=== PATIENT | female | born 1975 | race Hispanic/Latino ===

== ENCOUNTER 2016-12-16 14:29 | Emergency (ER) | payer OTHER ==
[~2016-12-16] VITALS: Ht 149.9 cm; Wt 61.8 kg
[~2016-12-16 14:29] MED LIST: ACET325T51 PO; ALBU18HF IN; ALBU8.5H4 INHALATION; CETI10CA PO; EPIN0.3P2 IJ; KEN1O TOP; OMEP20TA86 PO; ONDA4TAB12 PO; ONDA8TAB10 PO; OXYC1TAB24 PO; PHEN15CA67 PO
[2016-12-16 14:36] VITALS: BP 125/79; PULSE 63; RESP 16; O2SAT 100
--- NOTE | 2016-12-16 16:02 | ED.REPORT ---
HPI-Allergic Reaction Date of Service Dec 16, 2016 ED Provider: Ho Pearce MD Nursing Notes Stated Complaint: POSS ALLERGIC REACTION Chief Complaint: Allergic Reaction Allergies: Coded Allergies: TAPE (Verified Allergy, Severe, RASH, 05/15/16) azithromycin (Verified Allergy, Severe, HIVES, 05/15/16) codeine (Verified Allergy, Severe, UPSET STOMACH,RHINITIS,ANAPHYLAXIS, 05/15) peanut (Verified Allergy, Severe, stops breathing, 05/15/16) morphine (Verified Adverse Reaction, Severe, hallucinations, 05/15/16) Uncoded Allergies: SOAP (Allergy, Severe, RASH, 01/28/13) Scheduled Albuterol Sulfate (Ventolin HFA Inhaler) 200 Puff/18 Gm Inhaler 1 PUFF IN PRN Clindamycin (Clindamycin) 300 Mg Capsule 300 MG PO QID Epinephrine (Epipen 2-Juan Manuel) 0.3 Mg/0.3 Ml Auto.injct 0.3 MG IJ PRN Omeprazole (Omeprazole) 20 Mg Tablet.dr 20 MG PO BID Ondansetron ODT (Ondansetron ODT) 8 Mg Tab.rapdis 8 MG PO QID Phentermine (Phentermine) 15 Mg Capsule 15 MG PO DAILY Triamcinolone Acet (Triamcinolone Acetonide Ointment) 1 Applic/0.25 Gm Oint 60 APPLIC TOP BID 0.1% oxyCODONE-Acetaminophen 5-325 mg (oxyCODONE-Acetaminophen 5-325 mg) 1 Each Tablet 1 TABLET PO PRN Scheduled PRN Acetaminophen (Acetaminophen) 325 Mg Tablet 325 MG PO Q4H PRN PRN For Fever Albuterol HFA (Albuterol HFA) 8.5 Gm Hfa.aer.ad 1 PUFF INHALATION Q4H PRN PRN For Shortness of Breath Cetirizine HCl (Zyrtec) 10 Mg Capsule 10 MG PO HS PRN PRN ALLERGIES Ondansetron ODT (Ondansetron ODT) 4 Mg Tab.rapdis 4 MG PO Q4H PRN PRN For Nausea General Time Seen by MD: 15:41 Past Medical History Past Medical History Syphincter of oddi spasms Autoimmune disorder H/o anaphylaxis - carries EpiPen Frequent headaches Reports: Asthma, Diabetes mellitus Reports: Pancreatitis Past Surgical History Reports: Cholecystectomy Reports: Tubal ligation Smoking History Never Smoker Ambulatory Status Independent Physical Exam Initial Vital Signs Vital Signs (First) Date Time Temp Pulse Resp B/P Pulse Ox O2 Delivery O2 Flow Rate FiO2 12/16/16 14:36 36.6 63 16 125/79 100 12/16/16 17:25 Room Air Discharge & Departure Referrals: Gonzales Gongora MD (PCP) Ho Pearce MD Dec 16, 2016 16:02
--- NOTE | 2016-12-16 16:16 | ED.REPORT ---
HPI-General Illness Date of Service Dec 16, 2016 ED Provider: Ho Pearce MD The patient is a 41 year old female who presents to the emergency department concerned she may be having an allergic reaction. She was seen by her regular doctor 1 week ago for left-sided facial pressure and congestion. She was diagnosed with a sinus infection and sent home on amoxicillin. After her second dose last night she noticed a mild rash. Around 0300 this morning her noticed that the left side of her face was swollen and red. She denies shortness of breath, chest pain, throat pain, throat swelling or tongue swelling. Nursing Notes Stated Complaint: POSS ALLERGIC REACTION Chief Complaint: Allergic Reaction Nursing Notes Reviewed: Yes Allergies: Coded Allergies: TAPE (Verified Allergy, Severe, RASH, 05/15/16) azithromycin (Verified Allergy, Severe, HIVES, 05/15/16) codeine (Verified Allergy, Severe, UPSET STOMACH,RHINITIS,ANAPHYLAXIS, 05/15) peanut (Verified Allergy, Severe, stops breathing, 05/15/16) morphine (Verified Adverse Reaction, Severe, hallucinations, 05/15/16) Uncoded Allergies: SOAP (Allergy, Severe, RASH, 01/28/13) Scheduled Albuterol Sulfate (Ventolin HFA Inhaler) 200 Puff/18 Gm Inhaler 1 PUFF IN PRN Clindamycin (Clindamycin) 300 Mg Capsule 300 MG PO QID Epinephrine (Epipen 2-Juan Manuel) 0.3 Mg/0.3 Ml Auto.injct 0.3 MG IJ PRN Omeprazole (Omeprazole) 20 Mg Tablet.dr 20 MG PO BID Ondansetron ODT (Ondansetron ODT) 8 Mg Tab.rapdis 8 MG PO QID Phentermine (Phentermine) 15 Mg Capsule 15 MG PO DAILY Triamcinolone Acet (Triamcinolone Acetonide Ointment) 1 Applic/0.25 Gm Oint 60 APPLIC TOP BID 0.1% oxyCODONE-Acetaminophen 5-325 mg (oxyCODONE-Acetaminophen 5-325 mg) 1 Each Tablet 1 TABLET PO PRN Scheduled PRN Acetaminophen (Acetaminophen) 325 Mg Tablet 325 MG PO Q4H PRN PRN For Fever Albuterol HFA (Albuterol HFA) 8.5 Gm Hfa.aer.ad 1 PUFF INHALATION Q4H PRN PRN For Shortness of Breath Cetirizine HCl (Zyrtec) 10 Mg Capsule 10 MG PO HS PRN PRN ALLERGIES Ondansetron ODT (Ondansetron ODT) 4 Mg Tab.rapdis 4 MG PO Q4H PRN PRN For Nausea General Time Seen by MD: 16:21 Chief Complaint Allergic reaction Hx Obtained From: Patient Arrived By: Walk-in Sudden in Onset?: Yes Onset Occurred: Yesterday Symptom Duration: Since onset Location: : Face Quality: Painful Severity: Current: Mild Severity: Maximum: Mild Recent Healthcare: No recent hospitalization, Recent doctor visit Similar Sx Previous: Yes Past Medical History Past Medical History Sphincter of oddi spasms Autoimmune disorder H/o anaphylaxis - carries EpiPen Frequent headaches Reports: Asthma, Diabetes mellitus Reports: Pancreatitis Past Surgical History Reports: Cholecystectomy Reports: Tubal ligation Family History Noncontributory Smoking History Never Smoker Social History Other Social History: Good social support, , Local resident Ambulatory Status Independent Review of Systems Full Review of Systems Ears / Nose / Throat: Reports: Nasal congestion, Sinus problem, Denies: Sore throat, Throat pain, Throat swelling, Tongue pain, Tongue swelling Respiratory: Denies: Shortness of breath, Wheezing Cardiovascular: Denies: Chest pain Skin: Reports Rash Allergy / Immune: Reports: Allergic reaction Complete sys rev & neg: except as marked. Physical Exam Vital Signs Vital Signs Date Time Temp Pulse Resp B/P Pulse Ox O2 Delivery O2 Flow Rate FiO2 12/16/16 17:25 36.7 58 18 121/86 98 Room Air 12/16/16 14:36 36.6 63 16 125/79 100 Initial VS: Reviewed Head / Eyes: Atraumatic, Normocephalic, PERRL Neck: Supple, Non-tender, Full range of motion Respiratory: Breath sounds normal, Clear to auscultation, No respiratory distress Cardiovascular: Regular rate & rhythm, Heart sounds normal, Intact distal pulses Abdomen / GI: Soft, Non-tender, No guarding, No rebound, No distention Lymphatic: No lymphadenopathy Extremities: Vascular intact, Neuro intact, No swelling, No tenderness Skin: Warm, Dry, No cyanosis Neurologic: Alert, Oriented, Nonfocal Psychiatric: Mood/affect normal, Behavior normal, Normal thought content General/Constitutional: Awake, Alert, Well appearing ENT: Airway patent, Mucous membranes moist, Pharynx NL, No peritonsillar abscess, No pooling of secretions, Tympanic membs NL, Ext aud canal NL, Mastoid area NL Sinus: Positive: Tender maxillary L, Tender moderate Re-Eval/Medical Decision Med Decision/Clinical Course 31-year-old female presenting with left facial pain 1 week. She is being treated for sinusitis with amoxicillin by her primary doctor. She reports pain is not improved. She also reports puffy eyes earlier today after taking the medication. She took some Zyrtec and her symptoms got better. No sign symptoms anaphylaxis. She is tender over her left maxillary sinus. She is prescribed clindamycin. She will take her home pain medications. Recommend no further amoxicillin as possible allergic reaction. Return precautions given. Source of Hx: Old records Time of Eval: 16:33 Re-Evaluation/Progress Note: Discussed plan for discharge. All questions were addressed. Counseled Regarding: Diagnosis, Need for follow-up, When/why to return to ED Discharge & Departure Primary Impression: Sinusitis Sinusitis location: maxillary Chronicity: acute Recurrence: non-recurrent Qualified Code: J01.00 - Acute maxillary sinusitis, unspecified Additional Impression: Medication reaction Encounter type: initial encounter Qualified Code: T88.7XXA - Unspecified adverse effect of drug or medicament, initial encounter Disposition: Home Discharge Condition All VS Reviewed: Yes Condition: Stable Patient Instructions: Sinusitis (ED) Additional Instructions: Thank you for entrusting us with your care today. It sounds like you did have an allergic reaction to the amoxicillin. You should discontinue this medication immediately. I have written you a prescription for a new antibiotic called Clindamycin. Followup with your regular doctor if your symptoms are not improving in the next week. Seek care sooner if you develop increased pain or swelling, difficulty breathing, throat swelling, throat pain, tongue swelling, or any other new or concerning symptoms. Referrals: Gonzales Gongora MD (PCP) Scribe Attestation Portions of this note were transcribed by Smitha Reyes. I, Dr. Torres personally performed the history, physical exam and medical decision-making; I reviewed and confirmed the accuracy of the information in the transcribed note. Signed by: Roxie Lay, 12/16/2016 at 1700. copies to: Gonzales Gongora MD, Ben M MD Dec 16, 2016 16:16 Eric,Smitha Quiñonez Dec 16, 2016 16:23
[2016-12-16] MEDS ORDERED: CLIN-78 PO (16:38)
[2016-12-16 17:25] VITALS: BP 121/86; PULSE 58; RESP 18; O2SAT 98
== END 2016-12-16 17:15 | disposition home or self-care (01) ==
LOC: SED 14:29
DX: J01.00 Acute maxillary sinusitis, unspecified (principal); T36.0X5A Adverse effect of penicillins, initial encounter; Y93.89 Activity, other specified; Y92.89 Other specified places as the place of occurrence of the external cause; Y99.8 Other external cause status; J45.909 Unspecified asthma, uncomplicated; E11.9 Type 2 diabetes mellitus without complications; Z88.1 Allergy status to other antibiotic agents; Z88.5 Allergy status to narcotic agent; Z88.8 Allergy status to other drugs, medicaments and biological substances; Z91.010 Allergy to peanuts; Z91.048 Other nonmedicinal substance allergy status
CPT/HCPCS: 96372; 99283; J1885